=== PATIENT | female | born 1975 | race Caucasian/White ===

== ENCOUNTER 2021-06-11 00:49 | Day surgery (SDC) | payer BC, SELFPAY ==
--- NOTE | 2021-06-09 08:01 | PM.IMHP ---
H&P: HPI History of Present Illness Date/Time: 06/09/21 08:01 46-year-old status post hysterectomy and left salpingo-oophorectomy admitted for laparoscopic right cystectomy possible RSO. She has pain, discomfort and dyspareunia. Ultrasound showed a complex right ovarian cyst. She understands that removal of this right ovary make her postmenopausal we discussed the psychological physiologic changes of and that happens with this. Risks and benefits of the procedure reviewed in full. She received the [employer] handout entitled laparoscopy. She asked to proceed Chief Complaint: pelvic pain and complex right ovarian cyst Review of Systems Review of Systems: All systems reviewed & are unremarkable except as noted in HPI and below Meds Home Medications and Allergies Allergies Allergy/AdvReac Type Severity Reaction Status Date / Time No Known Allergies Allergy Mild Unverified 09/28/12 10:00 Exam Const: General: no acute distress Eyes: General: appearance normal, both eyes and all related structures Neck: Neck: supple and no JVD Thyroid: thyroid normal Resp: Effort & Inspection: normal respiratory effort Auscultation: clear to auscultation bilaterally Cardio: Rate: regular rate Rhythm: regular rhythm GI: Inspection: non-distended GI Palp: Yes Soft to palpation, No Tenderness to palpation present (GI) and No Guarding due to palpation present (GI) Auscultation: normal bowel sounds : External Female Exam: normal external appearance Speculum Exam - Vagina: normal appearance of the vagina Speculum Exam - Cervix: Cervix absent Bimanual exam- vagina & uterus: uterus absent Bimanual Exam- Adnexa, other: normal and tender bilaterally Skin: General skin exam: no rashes or lesions noted Extrem: General: normal to inspection and no edema Psych: Mental Status: mental status grossly normal Affect: normal affect Assessment and Plan Additional Plan impression: Pelvic pain with complex right ovarian cyst Plan: Laparoscopic right cystectomy and possible right salpingo-oophorectomy
[2021-06-09 09:17] VITALS: BMI 30.6
[2021-06-11] VITALS (10 sets, daily range): BP systolic 116–137; BP diastolic 59–88; PULSE 76–100; RESP 15–21; TEMP 36.2–37.1; O2SAT 96–100; BMI 32.1
--- NOTE | 2021-06-11 06:59 | WPDANESEPPF ---
Anes - Initial Pre Proc Eval Procedure: Operation Date: 06/11/21 10:30 Proposed Procedures p Laparoscopy Right Ovarian Cystectomy, Possible Right Salpingo-Oophorectomy - Gregorio Phan MD Date/Time: 06/11/21 06:59 Surgeon: Gregoroi Phan MD Pre Op Diagnosis: right ovarian cyst, pelvic pain Patient Data Age: 46 Gender: F Height: 1.51 m Weight: 70 kg Allergies Allergy/AdvReac Type Severity Reaction Status Date / Time No Known Allergies Allergy Mild Verified 06/11/21 08:59 Home Medications Medication Instructions Recorded Confirmed Type diazepam 10 mg PO DAILY 06/09/21 06/11/21 History estradiol [EstroGel] 1 pump TOPICAL DAILY 06/09/21 06/11/21 History lisdexamfetamine [Vyvanse] 70 mg PO DAILY 06/09/21 06/11/21 History oxycodone-acetaminophen 1 tablet PO Q4-5H PRN 06/09/21 06/11/21 History paroxetine HCl 20 mg PO DAILY 06/09/21 06/11/21 History pregabalin 50 mg PO DAILY 06/09/21 06/11/21 History hydrocodone-acetaminophen 1 tablet PO Q4H PRN #20 tablet 06/11/21 Rx Patient hx anesthesia problems: none Family hx anesthesia problems: none PMFSH Past Medical History Medical History (Updated 06/11/21 @ 09:50 by Dick Ramirez DO) Anxiety IBS (irritable bowel syndrome) Scoliosis Surgical History Surgical History (Updated 06/11/21 @ 07:00 by Dick Ramirez DO) History of hysterectomy S/P cervical spinal fusion Social History Social History (Updated 06/09/21 @ 09:54 by Leida Best RN) Smoking packs per day: 1 Smoking cigarettes per day: 20.0 Years smoked: 15 Smoking pack-years: 15.00 Smoking status: Light tobacco smoker Tobacco type: cigars Second hand tobacco smoke exposure: No Additional smoking assessment comments: QUIT CIGARETTE SMOKING 2004. RECENTLY BEGAN SMOKING OCCAS. CIGAR Alcohol intake: never Drinks per week: 0 Substance use: never Substance use type: does not use Living arrangements: with family Occupation/Education: occupation Gender identity (if verbalized by the patient): Female Spiritual care concerns: No Agree to blood products: Yes Anes - Eval Final PreProcedure Day of Procedure 06/11/21 06:59 Patient weight: obese Heart: regular rate and rhythm Lungs: clear to auscultation and normal air movement Airway: Mallampati scale class II Neurological: alert and oriented Last oral intake: >/= 8 hours ASA classification: II Emergent: no Anesthetic plan: proceed Anesthesia type and monitoring: general ETT and standard monitoring Informed Consent: The patient's anesthetic plan and its attendant risks and benefits were discussed with the patient/family/POA. Questions were solicited and answers provided to the satisfaction of the patient/family/POA.
--- NOTE | 2021-06-11 07:11 | WPDHPUPDATE1 ---
History and Physical Update Update Date/Time: 06/11/21 07:11 History and Physical has been reviewed, including an updated exam of the patient. There are NO changes in the patient's condition. Risks, benefits, and alternatives have been discussed and questions answered. Patient agrees to proceed with procedure.
[2021-06-11] MEDS: LACTATED RINGERS 1,000 ML 30 ML IV CONT ×2 (09:22→11:04)
[2021-06-11] MEDS: KETOROLAC 15 MG/ML VIAL (*BKC) IV PUSH (09:23)
[2021-06-11] MEDS: ACETAMINOPHEN 500 MG TABLET 1000 MG PO (09:23)
--- NOTE | 2021-06-11 11:01 | P.OP_ITS ---
Procedure Note - Detailed Date of Procedure 06/11/21 Pre-op Diagnosis right ovarian cyst, pelvic pain Post-op Diagnosis other (Also extensive adhesions) Procedure Performed Laparoscopic right salpingo-oophorectomy and lysis of adhesions Surgeon Gregorio Phan MD Anesthesia general Indications This is a 46-year-old female status post hysterectomy and left salpingo- oophorectomy with severe pelvic pain and ovarian cyst Findings Absent right ovary and tube absent uterus. Pelvic adhesions. Complex right ovary and tube Description of Procedure The patient was prepped and draped in the normal sterile fashion and placed in the dorsal lithotomy position. Under excellent general endotracheal anesthesia a weighted speculum placed in posterior fornix vagina. A sponge stick was placed to be used for vaginal manipulation. The bladder emptied of clear urine and the remainder the instruments removed. Gloves were changed An infraumbilical incision made the Veress needle passed in the abdomen. The abdomen filled with CO2 gas [id number]. The 5mm trocar advanced under direct visualization assuring no injury. The patient placed in Trendelenburg and a suprapubic incision made. The 5mm trocar advanced under direct visualization assuring no injury. The above findings were seen a right lower quadrant incision was then made. The 10mm trocar advanced under direct visualization assuring no injury. Using sharp dissection and LigaSure the adhesions were sharply dissected and cauterized at times. There was a complex right tubo- ovarian complex. The infundibulopelvic structure was skeletonized. This was clamped, burned, cut and the specimen placed in the Endo-Catch and removed through the right lower quadrant. Irrigation was undertaken until clear. All pedicles appeared dry. The lower site removed. The gas removed from the abdomen. The incisions closed with 4 Monocryl and glue. The instruments from the vagina removed and the patient awakened. All sponge, needle, instrument counts were correct. There were no immediate complications Estimated Blood Loss 25 Drains No Packing No Pathology yes Complications No immediate complications Condition stable Disposition PACU
[2021-06-11] MEDS: fentaNYL CITRATE INJ (*CRX) 100 MCG/2 ML VIAL 25 MCG IV PUSH ×4 (11:40→12:00)
[2021-06-11] MEDS: oxyCODONE HCL (*CRX) 5 MG TAB IR PO (12:48)
== END 2021-06-11 13:43 | disposition home or self-care (01) ==
PROVIDERS: PCP Emergency Medicine; Visit Provider Obstetrics & Gynecology
PROC: (CPT 49320; principal; 2021-06-11 10:30)
DX: N83.01 Follicular cyst of right ovary (principal); N73.6 Female pelvic peritoneal adhesions (postinfective); R10.2 Pelvic and perineal pain; F41.9 Anxiety disorder, unspecified; K58.9 Irritable bowel syndrome, unspecified; Z98.1 Arthrodesis status; F17.290 Nicotine dependence, other tobacco product, uncomplicated; E66.9 Obesity, unspecified; Z68.32 Body mass index [BMI] 32.0-32.9, adult
CPT/HCPCS: 58661; 36415; 86850; 86900; 86901; 88305; A9270; J0330; J1100; J1885; J2250; J2405; J2704; J3010; J7030; J7120